=== PATIENT | male | born 1955 | race Caucasian/White ===

== ENCOUNTER 2017-06-12 07:19 | Emergency (ER) | payer OTHER ==
[2017-06-12 09:07] VITALS: BP 130/64
== END 2017-06-12 09:07 | disposition home or self-care (01) ==
LOC: ED 07:19
DX: S05.41XA Penetrating wound of orbit with or without foreign body, right eye, initial encounter (principal); W18.30XA Fall on same level, unspecified, initial encounter; Y93.89 Activity, other specified; Y92.89 Other specified places as the place of occurrence of the external cause; Y99.8 Other external cause status